=== PATIENT | female | born 1940 ===

== ENCOUNTER 2025-01-17 01:00 | Emergency (ER) | payer SELFPAY ==
--- NOTE | 2025-01-17 01:01 | ED.GENADUL_ITS ---
Discharge Plan Discharge Details ED Provider: T[facility] Date/Time Provider Initiated Documentation: 01/17/25 01:01 . Medical Decision Making Quality:SDOH Health Related Social Needs: No Data to Display [facility] Social History Smoking risk assessment performed?: No
--- NOTE | 2025-01-17 01:01 | W.ED.GENAD ---
Discharge Plan Discharge Details ED Provider: Toney [facility] Date/Time Provider Initiated Documentation: 01/17/25 01:01. Medical Decision Making Quality:SDOH Health Related Social Needs: No Data to Display [facility] Social History Smoking risk assessment performed?: No
== END 2025-01-17 01:11 | disposition other institution (70) ==
LOC: ER 01:10
PROVIDERS: Emergency Provider Emergency Medicine
DX: Z02.9 Encounter for administrative examinations, unspecified (principal)